=== PATIENT | female | born 1990 | race Caucasian/White ===

== ENCOUNTER 2022-01-30 19:27 | Emergency (ER) | payer OTHER, MEDICAID, SELFPAY ==
[2022-01-30] VITALS (14 sets, daily range): BP systolic 110–140; BP diastolic 66–91; PULSE 100–110; RESP 25–38; TEMP 36.8; O2SAT 93–100; BMI 33.1
--- NOTE | 2022-01-30 19:39 | ED_ITS ---
HPI - Chest Pain General Chief Complaint: Chest Pain Stated Complaint: SOB, Chest pain Time Seen by Provider: 01/30/22 19:39 Source: patient and other Mode of arrival: Wheelchair History of Present Illness HPI narrative: 31F daily smoker with history of hypothyroid and smoking fentanyl presents with chest pain and shortness of breath that started yesterday. She reports that she is recently been hospitalized other facilities including [facility] and [facility] for ?vegetations on her heart ?. She states that she had surgery for repair and S eptember and has been doing largely rather well. She states that few days ago she developed this sharp and stabbing left-sided chest pain that is worse with deep breath and any motion. She is been coughing a fair amount which also makes things worse. She is not dizzy nor weak or lightheaded. She is admittedly quite anxious and scared because of her medical history. She states that she has not done anything in terms of smoking fentanyl since her last hospitalization. She denies any long distance travel or travel, injuries or other. Related Data Home Medications Medication Instructions Recorded Confirmed ferrous gluconate 324 mg (38 mg 1 tab PO Q DAY #100 tabs 10/13/16 iron) tablet levothyroxine 175 mcg tablet 1 tab PO Q DAY #30 tabs 10/13/16 Previous Rx's Medication Instructions Recorded amoxicillin 875 mg-potassium 1 tab PO Q12H #20 tabs 01/31/22 clavulanate 125 mg tablet doxycycline hyclate 100 mg tablet 100 mg PO BID #20 tabs 01/31/22 ketorolac 10 mg tablet 10 mg PO Q6H PRN pain #14 tabs 01/31/22 Allergies Allergy/AdvReac Type Severity Reaction Status Date / Time No Known Drug Allergies Allergy Verified 01/30/22 19:35 Review of Systems Review of Systems Narrative: GENERAL: See HPI HEENT: Denies sinus pain, ear pain, sore throat, difficulty swallowing, dizziness. RESPIRATORY: See HPI CARDIOVASCULAR: See HPI GASTROINTESTINAL: Denies nausea, vomiting, abdominal pain, diarrhea, constipation, melena. : Denies dysuria, frequency, incontinence, hematuria, urinary retention. MUSCULOSKELETAL: denies weakness, joint pain, or bony pain SKIN: Denies rash, skin lesions, or other NEUROLOGIC: Denies weakness, headache, numbness, change in speech, confusion, seizures, incoordination. PSYCHIATRIC: No concerning psychosocial issues. 12 point review of systems is negative except for those stated above Patient History Social History Smoking Status: Current every day smoker Smoking Status: Current every day smoker tobacco type: cigarettes Substance Use Type: opiates Exam Narrative Exam Narrative: GENERAL: [31] year old patient appears stated age. Well-developed patient, in mild distress. Anxious, tearful, clearly uncomfortable HEAD: Atraumatic. Normocephalic. EYES: Pupils equal round and reactive. Extraocular motions intact. No scleral icterus. No injection or drainage. ENT: Nose without bleeding, purulent drainage. Throat without erythema, tonsillar hypertrophy or exudate. Airway patent. NECK: Trachea midline. Non tender CARDIOVASCULAR: Regular rate and rhythm without murmurs, gallops, or rubs. Anterior chest tender to palpate RESPIRATORY: Clear to auscultation. Breath sounds equal bilaterally. No wheezes, rales, or rhonchi. GASTROINTESTINAL: Abdomen soft, non-tender, nondistended. EXTREMITIES: No edema or joint tenderness. BACK: Nontender without deformity or crepitance. No flank tenderness. NEURO: AOx3. SKIN: No rash or erythema of visible areas Initial Vital Signs Initial Vital Signs: Vital Signs Pulse Rate 101 H 01/30/22 19:35 Respiratory Rate 38 H 01/30/22 19:35 Blood Pressure 140/91 H 01/30/22 19:35 Pulse Oximetry 100 01/30/22 19:35 Oxygen Delivery Method 01/30/22 19:35 Course Course Course Narrative: [facility] Records obtained from [facility] for visit October of 2021. 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 She also had cavitary lung lesions which were thought to be septic pulmonary emboli. Id was consulted and patient was placed on IV vancomycin and cefepime. Renal function had been compromised and was improved by discharge. [facility] Records -transferred to [facility] on November 03. Repeat chest CT notes diffuse nodular opacities some of which are cavitary which is worsened from prior. Consultation by Cardiac surgery on November 05 with plan to perform AngioVac on November 10. Discharged on December 02 with plan for PICC line and 6 weeks of IV antibiotics Orders Ordered: ED Orders 11/06/22 19:39 Consult to [facility] Stat XR chest 1V Stat EKG-12 Lead Stat RT Consult Eval and Treat NOW 01/30/22 19:40 Complete Blood Count AUTO DIFF Stat Comprehensive Metabolic Panel Stat D Dimer Stat ESR [Erythrocyte Sedimentation Rate] Stat Lactate (Lactic Acid) Stat Lipase Stat Magnesium Stat NT-proBNP (BNP-Adult 18+) Stat Procalcitonin Stat Prothrombin Time INR Stat Troponin & CK Cardiac Panel Stat 01/30/22 19:42 Blood Culture Stat 01/30/22 20:20 Blood Culture Stat 01/30/22 20:54 CT angio chest PE protocol Stat 01/30/22 23:00 Respiratory Panel (Film Array) Stat Sodium Chloride (Normal Saline 0.9%) 1,000 mls @ 150 mls/hr IV CONT MAGDALENO Last Infusion: 01/31/22 00:02 Dose: 150 mls/hr Documented By: Infusion: 01/30/22 22:51 Dose: 0 mls/hr Documented By: Admin: 01/30/22 19:47 Dose: 150 mls/hr Documented By: BONNY Discontinued Medications Albuterol (Albuterol 2.5 Mg/3 Ml Neb (Adult)) 2.5 mg INH NOW ONE Stop: 01/30/22 20:09 Last Admin: 01/30/22 20:09 Dose: 2.5 mg Documented By: SAVITA Sodium Chloride (Normal Saline 0.9%) 1,000 mls @ 1,000 mls/hr IV BOLUS ONE Stop: 01/30/22 20:38 Last Admin: 01/30/22 19:50 Dose: Not Given Documented By: BONNY Azithromycin 500 mg/ Dextrose 250 mls @ 250 mls/hr IV NOW ONE Stop: 01/30/22 22:39 Last Infusion: 01/30/22 23:56 Dose: 0 mls/hr Documented By: Admin: 01/30/22 22:53 Dose: 250 mls/hr Documented By: AT Ketorolac Tromethamine (Ketorolac 30 Mg/Ml Vial) 15 mg IV NOW ONE Stop: 01/30/22 19:56 Last Admin: 01/30/22 20:04 Dose: 15 mg Documented By: MARY Montano Consultation #1: [id number] - call to [facility], images pushed, request to speak with CVT/Vasc about newly discovered pulmary artery aneurysms in the setting of pleuritic chest pain, tachycardia, tachypnea and recent surgical interventions. 2353 - call back from Dr. Olsen (CT at [facility] involved in her prior surgery). He has reviewed the images acquired today as well as their priors, he states that it is of little consequence in the absence of hemoptysis or low blood pressure at this time and should just be followed. He recommends she follow-up with Dr. Sinclair at [facility] in 3-4 weeks. Vital Signs Vital signs: Vital Signs - 8 hr 01/30/22 19:35 01/30/22 19:41 01/30/22 20:09 Temperature 98.2 F Pulse Rate 101 H 110 H Respiratory Rate 38 H 30 H Blood Pressure 140/91 H Pulse Oximetry 100 98 Oxygen Delivery Method Room Air Aerosol Mask 01/30/22 19:44 01/30/22 20:00 01/30/22 20:30 Temperature Pulse Rate 100 H 100 H 105 H Respiratory Rate 37 H 28 H 27 H Blood Pressure Pulse Oximetry 100 98 98 Oxygen Delivery Method 01/30/22 20:36 01/30/22 20:36 01/30/22 21:00 Temperature Pulse Rate 104 H Respiratory Rate Blood Pressure 116/73 117/72 Pulse Oximetry 97 Oxygen Delivery Method Room Air 01/30/22 21:00 01/30/22 21:21 01/30/22 21:21 Temperature Pulse Rate 103 H 101 H Respiratory Rate 25 H 28 H Blood Pressure 110/66 Pulse Oximetry 96 94 Oxygen Delivery Method Room Air Room Air 01/30/22 21:30 01/30/22 21:30 01/30/22 22:00 Temperature Pulse Rate 104 H Respiratory Rate 28 H Blood Pressure 117/68 121/70 Pulse Oximetry 94 Oxygen Delivery Method Room Air 01/30/22 22:00 01/30/22 22:30 01/30/22 22:30 Temperature Pulse Rate 105 H 106 H Respiratory Rate 28 H 26 H Blood Pressure 119/68 Pulse Oximetry 95 93 Oxygen Delivery Method Room Air 01/30/22 23:00 01/30/22 23:00 01/30/22 23:30 Temperature Pulse Rate 109 H Respiratory Rate 36 H Blood Pressure 123/72 118/70 Pulse Oximetry 94 Oxygen Delivery Method 01/30/22 23:30 Temperature Pulse Rate 108 H Respiratory Rate 28 H Blood Pressure Pulse Oximetry 94 Oxygen Delivery Method MDM - Chest Pain Lab Data Result diagrams: 01/30/22 19:40 01/30/22 19:40 Labs: Lab Results 01/30/22 01/30/22 01/30/22 Range/Units 19:40 19:40 19:40 WBC 12.9 H (4.5-11.0) X10^3/uL RBC 4.36 (4.0-5.2) X10^6/uL Hgb 12.6 (12.0-16.0) g/dL Hct 37.1 (36-46) % MCV 85.1 (80-100) fL MCH 28.8 (26-34) PG MCHC 33.8 (30-36) % RDW 14.5 (11.6-14.8) % Plt Count 387 (150-400) X10^3/uL Neut % (Auto) 68.4 (50-75) % Lymph % (Auto) 25.3 (25-40) % [place] % (Auto) 5.5 (3-14) % Eos % (Auto) 0.5 L (2-4) % Baso % (Auto) 0.3 (0-2) % Neut # (Auto) 8800 H (0122-4343) /uL Lymph # (Auto) 3300 (4682-5113) /uL [place] # (Auto) 700 (0-900) /uL Eos # (Auto) 100 (0-450) /uL Baso # (Auto) 0 (0-100) /uL ESR (0-20) MM/HR PT (10.1-12.7) SECONDS INR (0.9-1.3) D-Dimer (<500) ng/ml Sodium 138 (137-145) mmol/L Potassium 3.7 (3.4-5.1) mmol/L Chloride 97 L (98-107) mmol/L Carbon Dioxide 30 (22-32) mmol/L BUN 17 (7-17) mg/dL Creatinine 0.88 (0.52-1.04) mg/dL Estimated GFR > 60 (>60) mL/min BUN/Creatinine Ratio 19.3 (6-22) Glucose 99 (70-100) mg/dL Lactate 1.2 (0.7-2.1) mmol/L Calcium 9.2 (8.4-10.2) mg/dL Magnesium 2.0 (1.6-2.3) mg/dL Total Bilirubin 0.5 (0.2-1.3) mg/dL AST 39 H (14-36) IU/L ALT 38 H (<35) IU/L Alkaline Phosphatase 238 H (38-126) U/L Total Creatine Kinase 43 (30-135) U/L CK-MB (CK-2) TNP CK-MB (CK-2) Rel Index TNP Troponin I < 0.012 (0.01-0.034) ng/mL NT-Pro-B Natriuret Pep (<125) pg/mL Total Protein 8.3 H (6.3-8.2) g/dL Albumin 4.1 (3.5-5.0) g/dL Globulin 4.2 H (1.7-4.1) g/dL Albumin/Globulin Ratio 1.0 (1.0-2.8) Lipase 61 (23-300) U/L Procalcitonin 0.08 (<0.5) ng/mL Chlamy pneumoniae PCR (Not Detect) Adenovirus (PCR) (Not Detect) B. pertussis DNA (PCR) (Not Detecte) B.parapertussis DNA PCR (Not Detecte) Coronavirus OC43 (PCR) (Not Detect) Coronavirus HKU1 (PCR) (Not Detect) Coronavirus 229E (PCR) (Not Detect) SARS-CoV-2 (PCR) (Not Detecte) Coronavirus NL63 (PCR) (Not Detect) Human Metapneumovir PCR (Not Detect) Influenza Type A (PCR) (Not Detect) Influenza Type B (PCR) (Not Detect) M. pneumoniae (PCR) (Not Detect) Parainfluenza 1 (PCR) (Not Detect) Parainfluenza 2 (PCR) (Not Detect) Parainfluenza 3 (PCR) (Not Detect) Parainfluenza 4 (PCR) (Not Detect) RSV (PCR) (Not Detect) Entero/Rhino (PCR) (Not Detect) 01/30/22 01/30/22 01/30/22 Range/Units 19:40 19:40 19:40 WBC (4.5-11.0) X10^3/uL RBC (4.0-5.2) X10^6/uL Hgb (12.0-16.0) g/dL Hct (36-46) % MCV (80-100) fL MCH (26-34) PG MCHC (30-36) % RDW (11.6-14.8) % Plt Count (150-400) X10^3/uL Neut % (Auto) (50-75) % Lymph % (Auto) (25-40) % [place] % (Auto) (3-14) % Eos % (Auto) (2-4) % Baso % (Auto) (0-2) % Neut # (Auto) (0220-2484) /uL Lymph # (Auto) (0013-3258) /uL [place] # (Auto) (0-900) /uL Eos # (Auto) (0-450) /uL Baso # (Auto) (0-100) /uL ESR 48 H (0-20) MM/HR PT 13.4 H (10.1-12.7) SECONDS INR 1.2 (0.9-1.3) D-Dimer 1470 H (<500) ng/ml Sodium (137-145) mmol/L Potassium (3.4-5.1) mmol/L Chloride (98-107) mmol/L Carbon Dioxide (22-32) mmol/L BUN (7-17) mg/dL Creatinine (0.52-1.04) mg/dL Estimated GFR (>60) mL/min BUN/Creatinine Ratio (6-22) Glucose (70-100) mg/dL Lactate (0.7-2.1) mmol/L Calcium (8.4-10.2) mg/dL Magnesium (1.6-2.3) mg/dL Total Bilirubin (0.2-1.3) mg/dL AST (14-36) IU/L ALT (<35) IU/L Alkaline Phosphatase (38-126) U/L Total Creatine Kinase (30-135) U/L CK-MB (CK-2) CK-MB (CK-2) Rel Index Troponin I (0.01-0.034) ng/mL NT-Pro-B Natriuret Pep 416 H (<125) pg/mL Total Protein (6.3-8.2) g/dL Albumin (3.5-5.0) g/dL Globulin (1.7-4.1) g/dL Albumin/Globulin Ratio (1.0-2.8) Lipase (23-300) U/L Procalcitonin (<0.5) ng/mL Chlamy pneumoniae PCR (Not Detect) Adenovirus (PCR) (Not Detect) B. pertussis DNA (PCR) (Not Detecte) B.parapertussis DNA PCR (Not Detecte) Coronavirus OC43 (PCR) (Not Detect) Coronavirus HKU1 (PCR) (Not Detect) Coronavirus 229E (PCR) (Not Detect) SARS-CoV-2 (PCR) (Not Detecte) Coronavirus NL63 (PCR) (Not Detect) Human Metapneumovir PCR (Not Detect) Influenza Type A (PCR) (Not Detect) Influenza Type B (PCR) (Not Detect) M. pneumoniae (PCR) (Not Detect) Parainfluenza 1 (PCR) (Not Detect) Parainfluenza 2 (PCR) (Not Detect) Parainfluenza 3 (PCR) (Not Detect) Parainfluenza 4 (PCR) (Not Detect) RSV (PCR) (Not Detect) Entero/Rhino (PCR) (Not Detect) 01/30/22 Range/Units 23:00 WBC (4.5-11.0) X10^3/uL RBC (4.0-5.2) X10^6/uL Hgb (12.0-16.0) g/dL Hct (36-46) % MCV (80-100) fL MCH (26-34) PG MCHC (30-36) % RDW (11.6-14.8) % Plt Count (150-400) X10^3/uL Neut % (Auto) (50-75) % Lymph % (Auto) (25-40) % [place] % (Auto) (3-14) % Eos % (Auto) (2-4) % Baso % (Auto) (0-2) % Neut # (Auto) (0921-3303) /uL Lymph # (Auto) (0104-6965) /uL [place] # (Auto) (0-900) /uL Eos # (Auto) (0-450) /uL Baso # (Auto) (0-100) /uL ESR (0-20) MM/HR PT (10.1-12.7) SECONDS INR (0.9-1.3) D-Dimer (<500) ng/ml Sodium (137-145) mmol/L Potassium (3.4-5.1) mmol/L Chloride (98-107) mmol/L Carbon Dioxide (22-32) mmol/L BUN (7-17) mg/dL Creatinine (0.52-1.04) mg/dL Estimated GFR (>60) mL/min BUN/Creatinine Ratio (6-22) Glucose (70-100) mg/dL Lactate (0.7-2.1) mmol/L Calcium (8.4-10.2) mg/dL Magnesium (1.6-2.3) mg/dL Total Bilirubin (0.2-1.3) mg/dL AST (14-36) IU/L ALT (<35) IU/L Alkaline Phosphatase (38-126) U/L Total Creatine Kinase (30-135) U/L CK-MB (CK-2) CK-MB (CK-2) Rel Index Troponin I (0.01-0.034) ng/mL NT-Pro-B Natriuret Pep (<125) pg/mL Total Protein (6.3-8.2) g/dL Albumin (3.5-5.0) g/dL Globulin (1.7-4.1) g/dL Albumin/Globulin Ratio (1.0-2.8) Lipase (23-300) U/L Procalcitonin (<0.5) ng/mL Chlamy pneumoniae PCR Not detected (Not Detect) Adenovirus (PCR) Not detected (Not Detect) B. pertussis DNA (PCR) Not detected (Not Detecte) B.parapertussis DNA PCR Not detected (Not Detecte) Coronavirus OC43 (PCR) Not detected (Not Detect) Coronavirus HKU1 (PCR) Not detected (Not Detect) Coronavirus 229E (PCR) Not detected (Not Detect) SARS-CoV-2 (PCR) Not detected (Not Detecte) Coronavirus NL63 (PCR) Not detected (Not Detect) Human Metapneumovir PCR Not detected (Not Detect) Influenza Type A (PCR) Not detected (Not Detect) Influenza Type B (PCR) Not detected (Not Detect) M. pneumoniae (PCR) Not detected (Not Detect) Parainfluenza 1 (PCR) Not detected (Not Detect) Parainfluenza 2 (PCR) Not detected (Not Detect) Parainfluenza 3 (PCR) Not detected (Not Detect) Parainfluenza 4 (PCR) Not detected (Not Detect) RSV (PCR) Not detected (Not Detect) Entero/Rhino (PCR) Detected H (Not Detect) Imaging Data Chest x-ray: My Impression: Close Chest X-Ray (Signed) Bart Ly - 01/30/22 [place] [address] XRay Report Signed Patient: Jennie Clemens MR#: [id number] : 1990 Acct:[id number] Age/Sex: 31 / F Date of Service: 01/30/22 Loc: ED Accession Number: [id number] ?? Procedure: XR chest 1V Ordering Provider: Titus Avina D.O. PROCEDURE:? XR CHEST 1V ? INDICATIONS:? chest pain ? TECHNIQUE:? One view of the chest was acquired.? ? COMPARISON:? [facility], CR, XR CHEST 2 VIEWS, 09/22/2021, 22:17.? [facility], CR, XR CHEST 1 VIEW, 09/24/2021, 5:13.? [facility], CT, CT ANGIO CHEST PE, 09/23/2021, 0:12. ? FINDINGS:? ? Surgical changes and devices:? None.? ? Lungs and pleura:? On this semiupright portable chest examination, no large pneumothorax or large pleural effusions are seen.? Within the right lower lung, poorly defined opacity can be seen medially. ? Mediastinum:? Mediastinal contours appear normal.? Heart size is normal.? ? Bones and chest wall:? No suspicious bony lesions.? Overlying soft tissues appear unremarkable.? ? ? IMPRESSION:? Low lung volumes with mild likely infiltrate involving the right lower lung. ?Differential diagnosis includes atelectasis, however. ? If clinically appropriate, a short-term followup chest series (with PA and lateral views) performed in deep inspiration is suggested for further evaluation.? Dictated by: Bart Ly M.D. on 01/30/2022 at 19:01 ? ? Approved by: Bart Ly M.D. on 01/30/2022 at 19:02 ? MDM Narrative Medical decision making narrative: Patient with concerning history for possible Cardiothoracic emergency including dissection versus pulmonary embolism versus other. 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 Patient has no systemic findings such as fever, chills nor nausea or vomiting. She has no elevated white blood cell count, hypoxemia. She does have atypical pneumonia on imaging and is given 1st round of antibiotics here. She is quite stable and visibly relieved at delivering this news. She states that she always has a heart rate greater than 100 and feels significant if not complete resolution in her discomfort after the Toradol. She is given extensive return precautions, plans to contact Dr. Sinclair's office tomorrow and has had questions answered to her apparent satisfaction Discharge Plan Departure Patient Disposition: Home Clinical Impression: Atypical pneumonia, Aneurysm artery, pulmonary Instructions: DI for Atypical Pneumonia Activity Restrictions/Additional Instructions: *You have been diagnosed with [atypical pneumonia and newly discovered pulmonary artery aneurysm or pseudoaneurysm. As we discussed the remainder of your history, physical exam, labs and imaging are very reassuring. I spoke with your surgeons at [facility] who were not significantly concerned by these findings and want to see you in 3-4 weeks as an outpatient.] *What to do: *Please continue to take your regular medications as directed. [x] New medication prescriptions sent to your pharmacy: [[facility] ] [ ] New medication written as a paper prescription [ ] No new medications given *Please follow up with your primary care provider in 2-3 days, call for an appointment. Let them know you were seen in the Emergency Department and that we ask that you be seen in follow up. We will electronically transmit a record of today's note if your PCP is in our system *As we discussed please follow up with Dr. Sinclair at [facility] in 3-4 weeks. *Return to Emergency Department if you should have any new, worsening or concerning symptoms, such as [fever greater than 101 F, shaking chills, worsening pain, persistent vomiting or other bothersome symptoms] Prescriptions: New ketorolac 10 mg tablet 10 mg PO Q6H PRN (Reason: pain) Qty: 14 0RF doxycycline hyclate 100 mg tablet 100 mg PO BID Qty: 20 0RF amoxicillin-pot clavulanate 875-125 mg tablet 1 tab PO Q12H Qty: 20 0RF No Action ferrous gluconate 324 MG tablet 1 tab PO Q DAY Qty: 100 levothyroxine 175 MCG tablet 1 tab PO Q DAY Qty: 30 Referrals: Rafi Sinclair MD [Non-Staff] -
--- NOTE | 2022-01-30 19:39 | DI.RAD.S_ITS ---
PROCEDURE: XR CHEST 1V INDICATIONS: chest pain TECHNIQUE: One view of the chest was acquired. COMPARISON: [facility], CR, XR CHEST 2 VIEWS, 09/22/2021, 22:17. [facility], CR, XR CHEST 1 VIEW, 09/24/2021, 5:13. [facility], CT, CT ANGIO CHEST PE, 09/23/2021, 0:12. FINDINGS: Surgical changes and devices: None. Lungs and pleura: On this semiupright portable chest examination, no large pneumothorax or large pleural effusions are seen. Within the right lower lung, poorly defined opacity can be seen medially. Mediastinum: Mediastinal contours appear normal. Heart size is normal. Bones and chest wall: No suspicious bony lesions. Overlying soft tissues appear unremarkable. IMPRESSION: Low lung volumes with mild likely infiltrate involving the right lower lung. Differential diagnosis includes atelectasis, however. If clinically appropriate, a short-term followup chest series (with PA and lateral views) performed in deep inspiration is suggested for further evaluation. Dictated by: Bart Ly M.D. on 01/30/2022 at 19:01 Approved by: Bart Ly M.D. on 01/30/2022 at 19:02
[2022-01-30] MEDS: SODIUM CHLORIDE 0.9% 1,000 ML 150 ML IV (19:47)
[2022-01-30] MEDS: KETOROLAC 30 MG/ML VIAL 15 MG IV (20:04)
[2022-01-30] MEDS: ALBUTEROL 2.5 MG/3 ML NEB (ADULT) INH (20:09)
[2022-01-30 20:24] LABS: Add Manual Diff / Slide Review NO; Basophils Absolute Auto 0 /uL (0-100); Basophils Percent Auto 0.3 % (0-2); Eosinophils Absolute Auto 100 /uL (0-450); Eosinophils Percent Auto 0.5 % (2-4); Hematocrit 37.1 % (36-46); Hemoglobin 12.6 g/dL (12.0-16.0); Lymphocytes Absolute Auto 3300 /uL (1100-4500); Lymphocytes Percent Auto 25.3 % (25-40); Mean Corpuscular HGB Conc 33.8 % (30-36); Mean Corpuscular Hemoglobin 28.8 PG (26-34); Mean Corpuscular Volume 85.1 fL (80-100); Monocytes Absolute Auto 700 /uL (0-900); Monocytes Percent Auto 5.5 % (3-14); Neutrophils Absolute Auto 8800 /uL (1500-7000); Neutrophils Percent Auto 68.4 % (50-75); Platelet Count 387 X10^3/uL (150-400); Red Blood Cell Count 4.36 X10^6/uL (4.0-5.2); Red Cell Distribution Width 14.5 % (11.6-14.8); White Blood Cell Count 12.9 X10^3/uL (4.5-11.0)
[2022-01-30 20:37] LABS: INR 1.2 (0.9-1.3); Prothrombin Time 13.4 SECONDS (10.1-12.7)
[2022-01-30 20:39] LABS: D Dimer 1470 ng/ml (<500)
[2022-01-30 20:40] LABS: Alanine Aminotransferase 38 IU/L (<35); Albumin 4.1 g/dL (3.5-5.0); Alkaline Phosphatase 238 U/L (38-126); Aspartate Aminotransferase 39 IU/L (14-36); BUN Creatinine Ratio 19.3 (6-22); Bilirubin Total 0.5 mg/dL (0.2-1.3); Blood Urea Nitrogen 17 mg/dL (7-17); Calcium 9.2 mg/dL (8.4-10.2); Carbon Dioxide 30 mmol/L (22-32); Chloride 97 mmol/L (98-107); Creatine Kinase 43 U/L (30-135); Estimated Glomerular Filt Rate > 60 mL/min (>60); Globulin 4.2 g/dL (1.7-4.1); Glucose 99 mg/dL (70-100); HEMOLYSIS < 15 (0-50); Lactate (Lactic Acid) 1.2 mmol/L (0.7-2.1); Lipase 61 U/L (23-300); Potassium 3.7 mmol/L (3.4-5.1); Sodium 138 mmol/L (137-145); Total Protein 8.3 g/dL (6.3-8.2)
[2022-01-30 20:49] LABS: NT-proBNP (BNP-Adult 18+) 416 pg/mL (<125)
[2022-01-30 20:51] LABS: Troponin I < 0.012 ng/mL (0.01-0.034)
--- NOTE | 2022-01-30 20:54 | DI.CT.S_ITS ---
PROCEDURE: CT ANGIO CHEST PE PROTOCOL INDICATIONS: pleuritic chest pain, SOB, tachycardia, surgeries, admitted, TECHNIQUE: After the administration of intravenous contrast, 2 mm thick sections acquired from the pulmonary apices to the posterior costophrenic angles. 3-dimensional maximum intensity projection (MIP) coronal and sagittal reformats were then acquired through the thorax. For radiation dose reduction, the following was used: automated exposure control, adjustment of mA and/or kV according to patient size. COMPARISON: [facility], CT, CT ANGIO CHEST PE, 09/23/2021, 0:12. FINDINGS: Image quality: Excellent. Pulmonary arteries: Pulmonary arteries are normal in size, and demonstrate no central intraluminal filling defects to suggest acute pulmonary embolism. Within the right lower lobe, there is an oval hypervascular structure contiguous with the adjacent pulmonary artery and demonstrating similar opacification likely representing a pulmonary artery aneurysm or pseudoaneurysm measuring up to 1.7 cm on series 9, image 60. The finding is new compared to the prior study. Within the left lower lobe, there is also a new dilated segment of a subsegmental pulmonary artery measuring up to 1.4 cm on series 8, image 41. Finding is also suggestive of a pulmonary artery aneurysm or pseudoaneurysm. Lower Neck: No lymphadenopathy by size criteria. Thyroid: Visualized thyroid demonstrates no discrete nodules. Axillae: No lymphadenopathy by size criteria. Chest Wall: Unremarkable. Bones: Visualized osseous structures demonstrate no suspicious lesions. Lungs and Airways: There are a few patchy small areas of consolidation bilaterally including anteromedially within the right middle lobe and left lingula as well as a few areas of peribronchial consolidation in the left lower lobe. In addition, multiple areas of small clustered nodules are demonstrated bilaterally. A few clustered ground-glass opacities also demonstrated anteriorly in the left upper lobe. The constellation of findings most likely reflect pneumonia secondary to an atypical etiology. The trachea and central airways are patent. Pleura: No pneumothorax or pleural effusions. Heart: Heart size is normal. No pericardial effusion. Thoracic Vessels: The thoracic aorta is normal in size. Mediastinum and Tamara: There are multiple prominent clustered mediastinal and hilar lymph nodes without definite lymphadenopathy by size criteria. Findings are likely reactive. Esophagus: No wall thickening. No hiatal hernia. Abdomen: Visualized upper abdominal solid organs appear normal in the early arterial phase of enhancement. IMPRESSION: 1. No evidence of acute pulmonary embolism. 2. New hypervascular structures compatible with pulmonary artery aneurysms or pseudoaneurysms within the right and left lower lobes. Given the change compared to the prior study, the findings may reflect sequelae of prior infection. 3. Bilateral scattered airspace opacities as described consistent with an atypical pneumonia. Dictated by: Jake Stahl M.D. on 01/30/2022 at 21:57 Approved by: Jake Stahl M.D. on 01/30/2022 at 22:23
[2022-01-30 20:56] LABS: Procalcitonin 0.08 ng/mL (<0.5)
[2022-01-30 22:11] LABS: Erythrocyte Sedimentation Rate 48 MM/HR (0-20)
[2022-01-30] MEDS: AZITHROMYCIN 500 MG in DEXTROSE 5% IN WATER 250 ML 250 MG IV (22:53)
[2022-01-30 23:57] LABS: Adenovirus Not Detected (Not Detect)
[2022-01-30 23:58] LABS: B. parapertussis Not Detected (Not Detecte); Bordetella pertussis Not Detected (Not Detecte); Chlamydophila pneumoniae Not Detected (Not Detect); Coronavirus 229E Not Detected (Not Detect); Coronavirus HKU1 Not Detected (Not Detect); Coronavirus NL 63 Not Detected (Not Detect); Coronavirus OC43 Not Detected (Not Detect); Human Metapneumovirus Not Detected (Not Detect); Human Rhinovirus/Enterovirus Detected (Not Detect); Influenza A Not Detected (Not Detect); Influenza B Not Detected (Not Detect); Mycoplasma pneumoniae Not Detected (Not Detect); Parainfluenza Virus 1 Not Detected (Not Detect); Parainfluenza Virus 2 Not Detected (Not Detect); Parainfluenza Virus 3 Not Detected (Not Detect); Parainfluenza Virus 4 Not Detected (Not Detect); Respiratory Syncytial Virus Not Detected (Not Detect); SARS- CoV-2 Not Detected (Not Detecte)
[2022-01-31] VITALS: BP 113/71; PULSE 104; RESP 31; O2SAT 95
[2022-01-31 00:30] VITALS: BP 118/78; PULSE 93; RESP 31; O2SAT 94
== END 2022-01-31 00:46 | disposition home or self-care (01) ==
PROVIDERS: Emergency Provider Emergency Medicine
DX: J18.9 Pneumonia, unspecified organism (principal); I28.1 Aneurysm of pulmonary artery; R06.02 Shortness of breath; R07.9 Chest pain, unspecified; Z20.822 Contact with and (suspected) exposure to COVID-19
CPT/HCPCS: 36415; 71045; 71275; 80053; 82550; 83605; 83690; 83735; 83880; 84145; 84484; 85025; 85379; 85610; 85651; 87040; 87633; 93005; 93010; 94640; 96365; 96375; 99285; J1885; J7613; Q9967